=== PATIENT | female | born 1960 | race Caucasian/White ===

== ENCOUNTER 2021-03-14 12:35 | Emergency (ER) | payer OTHER, BC ==
[2021-03-14] MEDS ORDERED: Ondansetron PF 4 MG/2 ML Vial ONE ×2 (13:16→15:12)
[2021-03-14] MEDS ORDERED: Morphine 4 MG/ML VIAL ONE ×2 (13:16→14:10)
== END 2021-03-14 16:28 | disposition home or self-care (01) ==
LOC: CSHERS 12:35
DX: S09.90XA Unspecified injury of head, initial encounter (principal); S20.219A Contusion of unspecified front wall of thorax, initial encounter; S60.211A Contusion of right wrist, initial encounter; M25.551 Pain in right hip; V89.2XXA Person injured in unspecified motor-vehicle accident, traffic, initial encounter
CPT/HCPCS: 70450; 71045; 71260; 72125; 72170; 74177; 96374; 96375; 96376; G0390; J2270; J2405

== ENCOUNTER 2022-05-28 08:58 | Outpatient (CLI) | payer OTHER ==
[2022-05-28] MEDS ORDERED: Iopamidol 300 61% 100 ML VIAL FS ONE (12:39)
== END 2022-05-28 08:59 | disposition home or self-care (01) ==
LOC: CSHCT 08:58
PROVIDERS: ATTEND Otolaryngology Plastic Surgery within the Head & Neck
DX: H92.01 Otalgia, right ear (principal)
CPT/HCPCS: 70491; 82565; Q9967

== ENCOUNTER 2024-11-17 10:35 | Outpatient (CLI) | payer OTHER | END 2024-11-17 10:36 | disposition home or self-care (01) | LOC: CSHMAMMO 10:35 | PROVIDERS: ATTEND Obstetrics & Gynecology | DX: Z12.31 Encounter for screening mammogram for malignant neoplasm of breast (principal); Z78.0 Asymptomatic menopausal state; Z98.82 Breast implant status; M85.89 Other specified disorders of bone density and structure, multiple sites | CPT/HCPCS: 77063; 77067; 77080 ==